=== PATIENT | female | born 1990 | race Caucasian/White ===

== ENCOUNTER 2019-10-21 11:16 | Outpatient (CLI) | payer OTHER ==
[~2019-10-21] VITALS: Ht 160 cm; Wt 93.1 kg
[~2019-10-21 11:16] MED LIST: ACET325T26 PO; ACET650S12 PR; IBUP-1223 PO; OXYC-302 PO; PREN1TAB27 PO; SENN-52 PO
[2019-10-21 11:59] VITALS: BP 136/86
[2019-10-21 12:08] LABS: BASOPHILS # (AUTO) 0.03 x10^3/uL (0-0.1); BASOPHILS % (AUTO) 0 % (0-1); EOSINOPHILS # (AUTO) 0.05 x10^3/uL (0-0.4); EOSINOPHILS % (AUTO) 1 % (1-7); LYMPHOCYTES # (AUTO) 1.36 x10^3/uL (1-3.4); LYMPHOCYTES % (AUTO) 20 % (22-44); MD NO; MEAN CORPUSCULAR HEMOGLOBIN 28.9 pg (27.0-34.8); MEAN CORPUSCULAR HGB CONC 33.8 g/dL (32.4-35.8); MEAN CORPUSCULAR VOLUME 85.7 fL (80-100); MEAN PLATELET VOLUME 8.3 fL (7.4-10.4); MONOCYTES # (AUTO) 0.45 x10^3/uL (0.2-0.8); MONOCYTES % (AUTO) 7 % (2-9); NEUTROPHILS # (AUTO) 5.06 x10^3/uL (1.8-6.8); NEUTROPHILS % (AUTO) 73 % (42-75); PLATELET COUNT 212 x10^3/uL (130-400); RED CELL DISTRIBUTION WIDTH 14.8 % (9.6-15.2)
[2019-10-21 12:10] LABS: MICROSCOPIC INDICATED
[2019-10-21 12:15] LABS: ALBUMIN 2.6 g/dL (3.4-5.0); ANION GAP 6 mmol/L (5-15); CALCIUM 8.6 mg/dL (8.5-10.1); CHLORIDE 111 mmol/L (98-107)
[2019-10-21 12:19] LABS: ALANINE AMINOTRANSFERASE 24 U/L (12-78); ALKALINE PHOSPHATASE 108 U/L (45-117); BILIRUBIN,TOTAL 0.5 mg/dL (0.2-1.0); CREATININE 0.53 mg/dL (0.55-1.02); TOTAL PROTEIN 6.9 g/dL (6.4-8.2)
[2019-10-21 12:20] LABS: BILIRUBIN, DIRECT < 0.1 mg/dL (0.1-0.2)
== END 2019-10-21 13:45 | disposition home or self-care (01) ==
LOC: LDOP 11:16
PROVIDERS: ATTEND Obstetrics & Gynecology
DX: O16.3 Unspecified maternal hypertension, third trimester (principal); Z3A.36 36 weeks gestation of pregnancy
CPT/HCPCS: 36415; 59025; 80053; 81001; 82248; 82570; 84156; 84550; 85025

== ENCOUNTER 2019-10-26 20:12 | Outpatient (CLI) | payer OTHER | END 2019-10-26 22:08 | disposition home or self-care (01) | LOC: LDOP 20:12 | PROVIDERS: ATTEND Obstetrics & Gynecology | DX: O26.893 Other specified pregnancy related conditions, third trimester (principal); R10.9 Unspecified abdominal pain; Z3A.37 37 weeks gestation of pregnancy | CPT/HCPCS: 59025 ==

== ENCOUNTER 2019-11-02 02:43 | Inpatient (IN) | payer OTHER ==
[~2019-11-02] VITALS: Ht 160 cm; Wt 92.7 kg
[2019-11-02] MEDS ORDERED: D5%-LACTATED RINGERS 1,000 ML IV SCH (07:48)
[2019-11-02] MEDS ORDERED: OXYTOCIN 30U/ 0.9% NaCL 500ML 500 ML IV ONE (07:48)
[2019-11-02 08:00] VITALS: BP 130/83
[2019-11-02] MEDS ORDERED: TERBUTALINE 1 MG/ML, 1ML SQ PRN (08:00)
[2019-11-02] MEDS ORDERED: CALCIUM CARBONATE 500 MG TAB.CHEW PO PRN (08:00)
[2019-11-02] MEDS ORDERED: ONDANSETRON 2MG/ML, 2ML IVPush PRN (08:00)
[2019-11-02] MEDS ORDERED: PLEASE ENTER HEIGHT AND WEIGHT MC SCH (08:00)
[2019-11-02] MEDS ORDERED: TERBUTALINE 1 MG/ML, 1ML IVPush PRN (08:00)
[2019-11-02] MEDS ORDERED: FENTANYL PF 100 MCG/2ML IV PRN (08:00)
[2019-11-02] MEDS ORDERED: MISOPROSTOL 25 MCG TABLET VG PRN (08:00)
[2019-11-02] MEDS ORDERED: FENTANYL PF 100 MCG/2ML IVPush PRN (08:00)
[2019-11-02] MEDS: LACTATED RINGERS 1,000 ML IV SCH ×2 (08:10→18:07)
[2019-11-02] MEDS ORDERED: MISOPROSTOL 25 MCG TABLET ONE ×2 (08:15→12:27)
[2019-11-02 08:28] LABS: BASOPHILS # (AUTO) 0.03 x10^3/uL (0-0.1); BASOPHILS % (AUTO) 0 % (0-1); EOSINOPHILS # (AUTO) 0.06 x10^3/uL (0-0.4); EOSINOPHILS % (AUTO) 1 % (1-7); LYMPHOCYTES # (AUTO) 1.38 x10^3/uL (1-3.4); LYMPHOCYTES % (AUTO) 17 % (22-44); MD NO; MEAN CORPUSCULAR HEMOGLOBIN 28.3 pg (27.0-34.8); MEAN CORPUSCULAR HGB CONC 32.4 g/dL (32.4-35.8); MEAN CORPUSCULAR VOLUME 87.1 fL (80-100); MEAN PLATELET VOLUME 8.5 fL (7.4-10.4); MONOCYTES # (AUTO) 0.57 x10^3/uL (0.2-0.8); MONOCYTES % (AUTO) 7 % (2-9); NEUTROPHILS # (AUTO) 6.27 x10^3/uL (1.8-6.8); NEUTROPHILS % (AUTO) 75 % (42-75); PLATELET COUNT 189 x10^3/uL (130-400); RED CELL DISTRIBUTION WIDTH 14.9 % (9.6-15.2)
[2019-11-02 08:35] LABS: ALBUMIN 2.5 g/dL (3.4-5.0); ANION GAP 9 mmol/L (5-15); CALCIUM 8.7 mg/dL (8.5-10.1); CHLORIDE 108 mmol/L (98-107)
[2019-11-02 08:40] LABS: MICROSCOPIC NOT IND
[2019-11-02 08:41] LABS: ALANINE AMINOTRANSFERASE 20 U/L (12-78); ALKALINE PHOSPHATASE 114 U/L (45-117); BILIRUBIN,TOTAL 0.3 mg/dL (0.2-1.0); CREATININE 0.53 mg/dL (0.55-1.02); TOTAL PROTEIN 6.6 g/dL (6.4-8.2)
[2019-11-02 08:48] LABS: CREATININE,URINE RANDOM 30.1 mg/dL
[2019-11-02] MEDS ORDERED: NEWBORN KIT ONE (09:14)
[2019-11-02] MEDS ORDERED: LIDOCAINE 1%, 20ML ONE ×2 (09:14→19:00)
[2019-11-02] MEDS ORDERED: MISOPROSTOL 200 MCG TABLET ONE (09:15)
[2019-11-02] MEDS ORDERED: OXYTOCIN 30U/ 0.9% NaCL 500ML 500 ML ONE (09:15)
[2019-11-02] MEDS ORDERED: OXYTOCIN 30U/ 0.9% NaCL 500ML 500 ML IV PRN (12:47)
[2019-11-02] MEDS ORDERED: BUPIVACAINE 0.25% ONE ×2 (18:53→19:00)
[2019-11-02] MEDS ORDERED: FENTANYL/BUPIV./NS/PF 250 ML EPIDCONT ONE ×2 (18:53→19:00)
[2019-11-02] MEDS ORDERED: LACTATED RINGERS 1,000 ML IV SCH (19:14)
[2019-11-02] MEDS ORDERED: FENTANYL/BUPIV./NS/PF 250 ML EPIDCONT SCH (19:14)
[2019-11-02] MEDS ORDERED: LACTATED RINGERS 1,000 ML IVBOLUS PRN (19:30)
[2019-11-02] MEDS ORDERED: EPHEDRINE 50 MG/ML, 1ML IVPush PRN (19:30)
[2019-11-02] MEDS ORDERED: ONDANSETRON 2MG/ML, 2ML ONE (22:35)
[2019-11-02] MEDS ORDERED: CALCIUM CARBONATE 500 MG TAB.CHEW ONE (22:35)
[2019-11-03] MEDS ORDERED: OXYTOCIN 30U/ 0.9% NaCL 500ML 500 ML ONE (01:56)
[2019-11-03] MEDS ORDERED: IBUPROFEN 600 MG TABLET ONE (01:56)
[2019-11-03] MEDS: IBUPROFEN 600 MG TABLET PO PRN ×4 (01:57→23:44)
[2019-11-03] MEDS: OXYTOCIN 30U/ 0.9% NaCL 500ML 500 ML IV SCH ×3 (01:58→21:34)
[2019-11-03] MEDS ORDERED: ONDANSETRON 2MG/ML, 2ML IV PRN (02:00)
[2019-11-03] MEDS ORDERED: HYDROcodone/APAP 5/325 TABLET PO PRN (02:00)
[2019-11-03] MEDS ORDERED: MISOPROSTOL 200 MCG TABLET PR PRN (02:00)
[2019-11-03] MEDS ORDERED: OXYTOCIN 10 UNITS/ML, 1ML IM PRN (02:00)
[2019-11-03] MEDS ORDERED: ACETAMINOPHEN 325 MG TABLET PO PRN (02:00)
[2019-11-03] MEDS ORDERED: METHYLERGONOVINE 0.2 MG/ML IM PRN (02:00)
[2019-11-03] MEDS ORDERED: CARBOPROST TROMETHAMINE 250 MCG/ML, 1ML IM PRN (02:00)
[2019-11-03] MEDS ORDERED: SIMETHICONE 80 MG CHEW TAB PO PRN (02:00)
[2019-11-03] MEDS ORDERED: HYDROcodone/APAP 5/325 TABLET ONE (05:05)
[2019-11-03] MEDS: HYDROcodone/APAP 5/325 TABLET PO PRN ×4 (05:10→20:26)
[2019-11-03 08:00] VITALS: BP 132/84
[2019-11-03 08:15] VITALS: BP 132/84
[2019-11-03] MEDS: PRENATAL VIT/IRON/FA 1 EACH TABLET PO SCH (09:35)
[2019-11-03] MEDS: DOCUSATE 100 MG CAPSULE PO PRN ×2 (09:36→20:26)
[2019-11-03 10:09] LABS: BASOPHILS # (AUTO) 0.03 x10^3/uL (0-0.1); BASOPHILS % (AUTO) 0 % (0-1); EOSINOPHILS # (AUTO) 0.01 x10^3/uL (0-0.4); EOSINOPHILS % (AUTO) 0 % (1-7); LYMPHOCYTES # (AUTO) 1.31 x10^3/uL (1-3.4); LYMPHOCYTES % (AUTO) 12 % (22-44); MD NO; MEAN CORPUSCULAR HEMOGLOBIN 28.8 pg (27.0-34.8); MEAN CORPUSCULAR HGB CONC 33.5 g/dL (32.4-35.8); MEAN PLATELET VOLUME 9.4 fL (7.4-10.4); MONOCYTES % (AUTO) 6 % (2-9); NEUTROPHILS # (AUTO) 9.17 x10^3/uL (1.8-6.8); NEUTROPHILS % (AUTO) 82 % (42-75); PLATELET COUNT 161 x10^3/uL (130-400); RED BLOOD COUNT 3.55 x10^6/uL (3.82-5.3); RED CELL DISTRIBUTION WIDTH 14.9 % (9.6-15.2)
[2019-11-03 12:15] VITALS: BP 138/83
[2019-11-03 16:27] VITALS: BP 128/84
[2019-11-03 20:05] VITALS: BP 115/78
[2019-11-04 01:00] VITALS: BP 122/84
[2019-11-04] MEDS: HYDROcodone/APAP 5/325 TABLET PO PRN ×3 (01:03→12:18)
[2019-11-04] MEDS: IBUPROFEN 600 MG TABLET PO PRN ×2 (05:47→12:18)
[2019-11-04] MEDS: OXYTOCIN 30U/ 0.9% NaCL 500ML 500 ML IV SCH (07:34)
[2019-11-04 09:15] VITALS: BP 115/74
[2019-11-04] MEDS ORDERED: IBUP-1222 PO (11:53)
[2019-11-04] MEDS ORDERED: HYDR-3240 PO (11:54)
[2019-11-04] MEDS ORDERED: SENN-52 PO (11:54)
[2019-11-04] MEDS ORDERED: DIPH,PERTUSS(ACELL),TET VAC/PF NC IM-VACC ONE ×2 (12:02→12:30)
[2019-11-04] MEDS: DOCUSATE 100 MG CAPSULE PO PRN (12:18)
[2019-11-04] MEDS: PRENATAL VIT/IRON/FA 1 EACH TABLET PO SCH (12:18)
== END 2019-11-04 14:05 | disposition home or self-care (01) | DRG 807 ==
LOC: LDIP 07:11 → 2NE 11-03 04:03 → 2NW 11-03 07:19
PROVIDERS: ADMIT Obstetrics & Gynecology; ATTEND Obstetrics & Gynecology
PROC: 0KQM0ZZ Repair Perineum Muscle, Open Approach (ICD-10-PCS; principal; 2019-11-03)
PROC: 10E0XZZ Delivery of Products of Conception, External Approach (ICD-10-PCS; 2019-11-03)
PROC: 10907ZC Drainage of Amniotic Fluid, Therapeutic from Products of Conception, Via Natural or Artificial Opening (ICD-10-PCS; 2019-11-03)
PROC: 10H07YZ Insertion of Other Device into Products of Conception, Via Natural or Artificial Opening (ICD-10-PCS; 2019-11-03)
PROC: 3E0P7VZ Introduction of Hormone into Female Reproductive, Via Natural or Artificial Opening (ICD-10-PCS; 2019-11-03)
PROC: 3E0R3BZ Introduction of Anesthetic Agent into Spinal Canal, Percutaneous Approach (ICD-10-PCS; 2019-11-03)
PROC: 00HU33Z Insertion of Infusion Device into Spinal Canal, Percutaneous Approach (ICD-10-PCS; 2019-11-03)
DX: O13.4 Gestational [pregnancy-induced] hypertension without significant proteinuria, complicating childbirth (principal); Z37.0 Single live birth; O43.193 Other malformation of placenta, third trimester; O69.1XX0 Labor and delivery complicated by cord around neck, with compression, not applicable or unspecified; O69.3XX0 Labor and delivery complicated by short cord, not applicable or unspecified; O70.1 Second degree perineal laceration during delivery; O76 Abnormality in fetal heart rate and rhythm complicating labor and delivery; Z20.828 Contact with and (suspected) exposure to other viral communicable diseases; Z3A.38 38 weeks gestation of pregnancy
CPT/HCPCS: 36415; J3490; 80053; 81003; 82570; 82803; 84156; 84550; 85025; 86592; 86850; 86900; 87635; 90715; G0378; J2590; J3010; J7120